=== PATIENT | female | born 1975 ===

== ENCOUNTER → 2017-11-25 | Outpatient (CLI) | payer BC ==
[~2017-11-25] MED LIST: IBUP-1050 PO; PRENTAB26 PO; TYLUNK PO
== END | disposition home or self-care (01) ==
LOC: C.PATHSPEC 18:04
PROVIDERS: ATTEND Plastic Surgery
DX: D22.71 Melanocytic nevi of right lower limb, including hip (principal); D22.72 Melanocytic nevi of left lower limb, including hip; L82.1 Other seborrheic keratosis